=== PATIENT | male | born 1950 | race Two or more races ===

== ENCOUNTER 2016-11-08 12:28 | Emergency (ER) | payer OTHER ==
[2016-11-08 12:32] VITALS: TEMP 98; BMI 42.0
[2016-11-08 13:31] LABS: BASOPHIL 0.8 % (0-2.0); EOSINOPHIL 2.5 % (0-4.5); MCH 28.1 pg (25.7-33.7); MEAN CELL VOLUME 85.3 fl (80-96); MEAN PLT VOLUME 9.9 fl (7.5-11.1); NEUTROPHILS 69.4 % (42.8-82.8); PLATELET COUNT 70 K/MM3 (134-434); WHITE BLOOD COUNT 6.4 K/mm3 (4.0-10.0)
[2016-11-08] MEDS ORDERED: SODIUM CHLORIDE 1,000 ML IV STA ×2 (13:38→14:52)
--- NOTE | 2016-11-08 13:38 | PDOC ---
History of Present Illness - History of Present Illness Initial Comments: 11/08/16 13:58 The patient is a year old female, with a significant past medical history of hypertension and diabetes, who presents to the emergency department with polyuria, polydypsia, and blurred vision today. The patient reports having a dental procedure for left upper molar 4 days ago. He reports facial swelling initially which has since resolved. He states he took lantis (65 units) this morning and does not know why his sugars have been high. He denies chest pain, shortness of breath, headache and dizziness. He denies fever, chills, nausea, vomit, diarrhea and constipation. He denies dysuria, frequency, urgency and hematuria. Allergies: cefazolin, lactose <Reny Bales - Last Filed: 11/08/16 15:13> <Irene Montiel - Last Filed: 11/08/16 17:49> - General Chief Complaint: Blood Sugar Problem Stated Complaint: HIGH SUGAR, BLURRY VISION Past History <Reny Bales - Last Filed: 11/08/16 15:13> - Past Medical History Anemia: Yes ("low platelets") Asthma: Yes Cancer: No Cardiac Disorders: Yes (a.fib, CHF, CAD) COPD: Yes CHF: Yes Diabetes: Yes (W/ NEUROPATHY.) HTN: Yes Hypercholesterolemia: No Kidney Stones: Yes (LITHOTRIPSY) Liver Disease: Yes (HEP C, CIRRHOSIS R/T HCV) Psychiatric Problems: Yes (ANXIETY.) Suicide Attempt (Hx): No Thyroid Disease: Yes (hypothyroidism) - Surgical History Abdominal Surgery: Yes (repair ruptured diaphragm >40 yrs) Cardiac Surgery: Yes (STENT X 2, DEFIBRILLATOR) - Family Disease History Family Disease History: Diabetes: Father - Immunization History Td Vaccination: No TDAP Vaccination: No Immunization Up to Date: Yes - Psycho/Social/Smoking Cessation Hx Anxiety: Yes Suicidal Ideation: No Smoking Status: No Smoking History: Former smoker Have you smoked in the past 12 months: No Number of Cigarettes Smoked Daily: 0 If you are a former smoker, when did you quit?: 20 YRS Information on smoking cessation initiated: No Hx Alcohol Use: No Drug/Substance Use Hx: No Substance Use Type: None Hx Substance Use Treatment: No <Irene Montiel - Last Filed: 11/08/16 17:49> - Past Medical History Allergies/Adverse Reactions: Allergies Allergy/AdvReac Type Severity Reaction Status Date / Time cefazolin Allergy Severe Difficulty Verified 11/08/16 12:32 Breathing lactose Allergy Mild Verified 11/08/16 12:32 strawberry preserve Allergy Hives Uncoded 11/08/16 12:32 Home Medications: Ambulatory Orders Budesonide/Formeterol Fumarate [SYMBICORT 160/4.5mcg -] 2 inh PO ASDIR PRN 10/02 Amlodipine Besylate [Norvasc -] 5 mg PO DAILY #30 tablet 10/25/15 Aspirin [ASA -] 81 mg PO DAILY #30 tab.chew 10/25/15 Albuterol Sulfate Inhaler - [Ventolin Hfa Inhaler -] 2 inh PO QID 04/24/16 Vitamin D3 - 50,000 units PO ASDIR 04/24/16 Furosemide [Lasix -] 40 mg PO Q2D 11/08/16 Furosemide [Lasix] 80 mg PO Q2D 11/08/16 Gabapentin 100 mg PO TID 11/08/16 Insulin (Levemir) [Levemir Flexpen -] 40 units SQ HS 11/08/16 Insulin (Levemir) [Levemir Vial] 65 unit SQ AM 11/08/16 Insulin Aspart [Novolog] 0 unit SQ ACHS 11/08/16 Ipratropium [place] [Atrovent Hfa] 2 puff IH QID 11/08/16 Metoprolol Succinate [Toprol Xl -] 150 mg PO DAILY 11/08/16 Ramipril [Altace] 10 mg PO DAILY 11/08/16 Risperidone 1 mg PO DAILY 11/08/16 Simvastatin [Zocor -] 20 mg PO DAILY 11/08/16 Spironolactone [Aldactone] 25 mg PO DAILY 11/08/16 Review of Systems - Review of Systems Able to Perform ROS?: Yes Comments:: 11/08/16 14:14 GENERAL/CONSTITUTIONAL: No fever or chills. No weakness. HEAD, EYES, EARS, NOSE AND THROAT: (+) blurred vision. No ear pain or discharge. No sore throat. CARDIOVASCULAR: No chest pain or shortness of breath. RESPIRATORY: No cough, wheezing, or hemoptysis. GASTROINTESTINAL: No nausea, vomiting, diarrhea or constipation. GENITOURINARY: No dysuria, frequency, or change in urination. MUSCULOSKELETAL: No joint or muscle swelling or pain. No neck or back pain. SKIN: No rash NEUROLOGIC: No headache, vertigo, loss of consciousness, or change in strength/ sensation. ENDOCRINE: (+) high blood sugar. No increased thirst. No abnormal weight change. HEMATOLOGIC/LYMPHATIC: No anemia, easy bleeding, or history of blood clots. ALLERGIC/IMMUNOLOGIC: No hives or skin allergy. <Reny Bales - Last Filed: 11/08/16 15:13> *Physical Exam - Vital Signs Last Vital Signs Temp Pulse Resp BP Pulse Ox 98.0 F 55 L 20 135/86 97 11/08/16 12:29 11/08/16 12:11/08/16 12:11/08/16 12:11/08/16 12:29 - Physical Exam Comments: 11/08/16 14:14 GENERAL: Awake, alert, and fully oriented, in no acute distress HEAD: No signs of trauma EYES: PERRLA, EOMI, sclera anicteric, conjunctiva clear ENT: Auricles normal inspection, hearing grossly normal, nares patent, oropharynx clear without exudates. Moist mucosa NECK: Normal ROM, supple, no lymphadenopathy, JVD, or masses LUNGS: Breath sounds equal, clear to auscultation bilaterally. No wheezes, and no crackles HEART: Regular rate and rhythm, normal S1 and S2, no murmurs, rubs or gallops ABDOMEN: Soft, nontender, normoactive bowel sounds. No guarding, no rebound. No masses EXTREMITIES: Normal range of motion, no edema. No clubbing or cyanosis. No cords, erythema, or tenderness NEUROLOGICAL: Normal speech, normal gait SKIN: Warm, Dry, normal turgor, no rashes or lesions noted. <Reny Bales - Last Filed: 11/08/16 15:13> - Vital Signs Last Vital Signs Temp Pulse Resp BP Pulse Ox 98.0 F 55 L 20 135/86 97 11/08/16 12:29 11/08/16 12:29 11/08/16 12:29 11/08/16 12:29 11/08/16 12:29 <Irene Montiel - Last Filed: 11/08/16 17:49> Heart Score/ECG Review #1 General ECG Interpretation: Normal Rate (atrial fibrillation), Normal Intervals , No acute ischemic changes Compared to previous ECG there are: Other (TWI I, AVL) <Irene Montiel - Last Filed: 11/08/16 17:49> ED Treatment Course - LABORATORY CBC & Chemistry Diagram: 11/08/16 13:21 11/08/16 13:21 - ADDITIONAL ORDERS Additional order review: Laboratory Results 11/08/16 13:31 VBG pH 7.36 POC VBG pCO2 46.9 POC VBG pO2 33.3 Mixed VBG HCO3 25.5 H 11/08/16 13:21 RBC 5.04 MCV 85.3 MCHC 33.0 RDW 15.0 MPV 9.9 D Neutrophils % 69.4 Lymphocytes % 18.3 Monocytes % 9.0 Eosinophils % 2.5 Basophils % 0.8 - RADIOLOGY Radiograph Interpretation: 11/08/16 15:11 CXR was read by Dr. Kapoor at 14:37 Impression: There is a large heart, pacemaker, prominent debra and elevated right hemidiaphragm with mamillation. An acute chest process is not sen. The angles are sharp. <Reny Bales - Last Filed: 11/08/16 15:13> - LABORATORY CBC & Chemistry Diagram: 11/08/16 13:21 11/08/16 13:21 <Irene Montiel - Last Filed: 11/08/16 17:49> Medical Decision Making - Medical Decision Making 11/08/16 15:03 Dr. Aquino was called at the office at this time and the patient's case was discussed. He agrees to the patient admission and requests the patient be admitted to hospitalist service. <Reny Bales - Last Filed: 11/08/16 15:13> - Medical Decision Making 11/08/16 13:35 66 yo male with ho HTN DM recent dental procedure on left upper molar here today c/o polyuria, polydyspia and blurry vision. glucose was reading high at home. pt take lantus 65 units q am, took today and yesterday. also took 10 units novalog. did not come down. no f/c . facial swelling following procedure has improved. has left leg wound which was recently looked at and wrapped. no f/ c. no dysuria. no cough, no chest pain. on exam awake, alert, dry mucous membranes. lungs CTAB heart RRR no mr/g. abd soft nontender.left leg anterior foot wound, WWP. mild erythema. differential: dehydration, hyperosmolar hyperglycemia, dka, infection such as pna, uti or celulitis. plan ekg labs acetone iv hydration insulin. pt will require admission. 11/08/16 14:02 d/w with pt , Mrs Munoz who states she gives all of hismeds, but not his insulin injections because he wont allow her to, and she believes he is not taking medication as he should. just saw Dr. michael for his left leg wound, and boo boot placed 5 days ago. no signs of infection. 11/08/16 15:05 d/w dr. aquino, pt has h'o noncompliance. also has h/o hep C, liver cirrhosis. h/ o noncompliance. INR 1.3 at baseline. 11/08/16 17:48 tp seen by case management. has coordinated for pt to get home visiting nurse to help with diabetes education and medication administration. will eventually work on placement from the community. repeat sugar in 200's. pt notified. will fiber picker pt at 7 pm <Irene Montiel - Last Filed: 11/08/16 17:49> *DC/Admit/Observation/Transfer - Attestations Scribe Attestion: 11/08/16 14:15 Documentation prepared by Reny Bales, acting as medical manager for Irene Montiel MD <Reny Bales - Last Filed: 11/08/16 15:13> - Discharge Dispostion Admit: No <Irene Montiel - Last Filed: 11/08/16 17:49> Diagnosis at time of Disposition: Hyperglycemia without ketosis - Discharge Dispostion Disposition: HOME - Referrals Referrals: Abhijit Aquino MD [Primary Care Provider] - - Patient Instructions Additional Instructions: follow up with Dr Aquino this week. you will be contacted by a home visiting nurse tomorrow. return for any concerns. continue taking your insulin lantus in the morning and novolog with meals. return for any problems or concerns.
[2016-11-08 13:39] LABS: VENOUS PH 7.36 (7.32-7.42)
[2016-11-08 13:40] LABS: VENOUS BLOOD GAS HCO3 25.5 meq/L (19-25)
[2016-11-08 14:03] LABS: ACETONE SERUM NEGATIVE (NEGATIVE)
[2016-11-08 14:13] LABS: ALBUMIN 2.7 g/dl (3.4-5.0); ANION GAP 9 (8-16); BILIRUBIN,TOTAL 0.8 mg/dL (0.2-1.0); CALCIUM 8.2 mg/dL (8.5-10.1); CO2 28 mmol/L (21-32); COCKROFT - GAULT 86.18; CREATININE 1.5 mg/dL (0.7-1.3); SGPT/ALT 65 U/L (12-78); TOT PROT 6.6 g/dl (6.4-8.2)
[2016-11-08 14:14] LABS: ALK PHOS 69 U/L (45-117)
[2016-11-08 14:33] LABS: GLUCOSE,RANDOM 477 mg/dL (74-106); SGOT/AST 63 U/L (15-37)
[2016-11-08] MEDS ORDERED: INSULIN REGULAR HUMAN 100 UNITS/ML *VIAL IVPUSH ONE ×2 (14:53→17:09)
[2016-11-08 19:08] VITALS: BP 135/74; PULSE 91
--- NOTE | 2016-11-09 13:08 | EKG ---
Test Reason : Blood Pressure : / mmHG Vent. Rate : 077 BPM Atrial Rate : 081 BPM P-R Int : 000 ms QRS Dur : 120 ms QT Int : 412 ms P-R-T Axes : 000 -44 137 degrees QTc Int : 466 ms ATRIAL FIBRILLATION LEFT AXIS DEVIATION ANTERIOR INFARCT , AGE UNDETERMINED ABNORMAL ECG WHEN COMPARED WITH ECG OF 21-OCT-2015 11:17, ATRIAL FIBRILLATION HAS REPLACED SINUS RHYTHM ANTERIOR INFARCT IS NOW PRESENT INVERTED T WAVES HAVE REPLACED NONSPECIFIC T WAVE ABNORMALITY IN LATERAL LEADS Confirmed by LEON WILEY MD ([id number]) on 11/09/2016 1:08:15 PM Referred By: Confirmed By:LEON WILEY MD
== END 2016-11-08 19:12 | disposition home or self-care (01) ==
LOC: JER 12:28
PROC: 3E0337Z Introduction of Electrolytic and Water Balance Substance into Peripheral Vein, Percutaneous Approach (ICD-10-PCS; principal; 2016-11-08)
PROC: 3E033VG Introduction of Insulin into Peripheral Vein, Percutaneous Approach (ICD-10-PCS; 2016-11-08)
DX: E11.65 Type 2 diabetes mellitus with hyperglycemia (principal); Z79.4 Long term (current) use of insulin; I25.10 Atherosclerotic heart disease of native coronary artery without angina pectoris; I11.0 Hypertensive heart disease with heart failure; I50.9 Heart failure, unspecified; Z95.5 Presence of coronary angioplasty implant and graft; Z87.891 Personal history of nicotine dependence; J45.909 Unspecified asthma, uncomplicated; J44.9 Chronic obstructive pulmonary disease, unspecified; I48.91 Unspecified atrial fibrillation; E11.42 Type 2 diabetes mellitus with diabetic polyneuropathy; B18.2 Chronic viral hepatitis C; E03.9 Hypothyroidism, unspecified; K74.69 Other cirrhosis of liver
CPT/HCPCS: 36415; 71020-TC; 80053; 82009; 82803; 85025; 93005; 93010; 93970-TC; 99283-25

== ENCOUNTER 2017-02-14 15:08 | Emergency (ER) | payer OTHER ==
[2017-02-14 15:34] VITALS: BMI 39.1
--- NOTE | 2017-02-14 19:37 | PDOC ---
History of Present Illness - General History Source: Patient Exam Limitations: No Limitations - History of Present Illness Initial Comments: 02/14/17 19:56 The patient is a 66 year old male with significant past medical history of anemia, hypertension, atrial fibrillation, chronic venous insufficiency, diabetes mellitus, diabetic neuropathy, hypothyroidism, cirrhosis, hepatitis C, lithotripsy, CHF, CAD s/p stents x2, COPD, asthma, and anxiety who presents to the ED for elevated and uncontrolled blood sugar levels. Patient admits to not being compliant with his insulin. States he has been checking his blood sugar every day and noted his blood sugar has been increasing in the past several days. He decided to come into today after he noted his blood sugar was around 500 today. Patient admits to polyuria, but denies polydipsia. Denies abdominal pain, nausea, vomiting, or diarrhea. Denies dysuria or hematuria. States he has not seen his medical doctor for quite some time. The patient denies fever, chills, diaphoresis, cough, SOB, chest pain, and palpitations. Allergies: cefazolin (anaphylaxis) Social History: Former smoker (quit several years ago). No alcohol or drug use reported. Past Surgical History: stent placement x2, ruptured diaphragm repair >40 years PCP: Dr. Frank (Affiliated at [facility]) <Coretta Gastelum - Last Filed: 02/14/17 19:56> - General History Source: Patient <Luis Damon - Last Filed: 02/14/17 22:25> - General Chief Complaint: Blood Pressure Problem Stated Complaint: HIGH BLOOD SUGAR Time Seen by Provider: 02/14/17 19:32 Past History <Coretta Gastelum - Last Filed: 02/14/17 19:56> - Past Medical History Anemia: Yes ("low platelets") Asthma: Yes Cancer: No Cardiac Disorders: Yes (a.fib, CHF, CAD) COPD: Yes CHF: Yes Diabetes: Yes (W/ NEUROPATHY.) HTN: Yes Hypercholesterolemia: No Kidney Stones: Yes (LITHOTRIPSY) Liver Disease: Yes (HEP C, CIRRHOSIS R/T HCV) Psychiatric Problems: Yes (ANXIETY.) Suicide Attempt (Hx): No Thyroid Disease: Yes (hypothyroidism) - Surgical History Abdominal Surgery: Yes (repair ruptured diaphragm >40 yrs) Cardiac Surgery: Yes (STENT X 2, DEFIBRILLATOR) - Family Disease History Family Disease History: Diabetes: Father - Immunization History Td Vaccination: No TDAP Vaccination: No Immunization Up to Date: Yes - Psycho/Social/Smoking Cessation Hx Anxiety: Yes Suicidal Ideation: No Smoking Status: No Smoking History: Former smoker Have you smoked in the past 12 months: No Number of Cigarettes Smoked Daily: 0 If you are a former smoker, when did you quit?: 20 YRS Information on smoking cessation initiated: No Hx Alcohol Use: No Drug/Substance Use Hx: No Substance Use Type: None Hx Substance Use Treatment: No <Luis Damon - Last Filed: 02/14/17 22:25> - Past Medical History Allergies/Adverse Reactions: Allergies Allergy/AdvReac Type Severity Reaction Status Date / Time cefazolin Allergy Severe Difficulty Verified 02/14/17 15:32 Breathing lactose Allergy Mild Verified 02/14/17 15:32 strawberry preserve Allergy Hives Uncoded 02/14/17 15:32 Home Medications: Ambulatory Orders Unobtainable [Unobtainable] 02/14/17 Review of Systems - Review of Systems Able to Perform ROS?: Yes Comments:: 02/14/17 19:57 CONSTITUTIONAL: Absent: fever, chills, diaphoresis, generalized weakness, malaise, loss of appetite HEENT: Absent: rhinorrhea, nasal congestion, throat pain, throat swelling, difficulty swallowing, mouth swelling, ear pain, eye pain, visual Changes CARDIOVASCULAR: Absent: chest pain, syncope, palpitations, irregular heart rate, lightheadedness , peripheral edema RESPIRATORY: Absent: cough, shortness of breath, dyspnea with exertion, orthopnea, wheezing, stridor, hemoptysis GASTROINTESTINAL: Absent: abdominal pain, abdominal distension, nausea, vomiting, diarrhea, constipation, melena, hematochezia GENITOURINARY: Absent: dysuria, hesitancy, hematuria, flank pain, genital pain MUSCULOSKELETAL: Absent: myalgia, arthralgia, joint swelling SKIN: Absent: rash, itching, pallor ENDOCRINE: +polyuria, elevated blood sugar levels Absent: unexplained weight gain, unexplained weight loss, heat intolerance, cold intolerance, polydipsia NEUROLOGIC: Absent: headache, focal weakness or paresthesias, dizziness, unsteady gait, seizure, mental status changes, bladder or bowel incontinence <Coretta Gastelum - Last Filed: 02/14/17 19:56> *Physical Exam - Vital Signs Last Vital Signs Temp Pulse Resp BP Pulse Ox 98 F 76 20 142/84 96 02/14/17 15:33 02/14/17 15:33 02/14/17 15:33 02/14/17 15:33 02/14/17 15:33 - Physical Exam Comments: 02/14/17 19:57 GENERAL: Well developed, well nourished. Awake and alert. No acute distress. HEENT: Normocephalic, atraumatic. PERRLA, EOMI. No conjunctival pallor. Sclera are non- icteric. Moist mucous membranes. Oropharynx is clear. NECK: Supple. Full ROM. No JVD. Carotid pulses 2+ and symmetric, without bruits. No thyromegaly. No lymphadenopathy. CARDIOVASCULAR: Regular rate and rhythm. No murmurs, rubs, or gallops. Distal pulses are 2+ and symmetric. PULMONARY: No evidence of respiratory distress. Lungs clear to auscultation bilaterally. No wheezing, rales or rhonchi. ABDOMINAL: Soft. Non-tender. Non-distended. No rebound or guarding. No organomegaly. Normoactive bowel sounds. MUSCULOSKELETAL Normal range of motion at all joints. No bony deformities or tenderness. No CVA tenderness. EXTREMITIES: No cyanosis. No clubbing. No edema. No calf tenderness. SKIN: Warm and dry. Normal capillary refill. No rashes. No jaundice. NEUROLOGICAL: Alert, awake, appropriate. Cranial nerves 2-12 intact. No gross neurological deficits. <Coretta Gastelum - Last Filed: 02/14/17 19:56> - Vital Signs Last Vital Signs Temp Pulse Resp BP Pulse Ox 98 F 76 20 142/84 96 02/14/17 15:33 02/14/17 15:33 02/14/17 15:33 02/14/17 15:33 02/14/17 15:33 <Luis Damon - Last Filed: 02/14/17 22:25> ED Treatment Course - ADDITIONAL ORDERS Additional order review: Laboratory Results 02/14/17 17:52 POC Glucometer [id number] 02/14/17 17:52 POC Glucometer [id number] <Coretta Gastelum - Last Filed: 02/14/17 19:56> - LABORATORY CBC & Chemistry Diagram: 02/14/17 21:15 02/14/17 21:15 - ADDITIONAL ORDERS Additional order review: Laboratory Results 02/14/17 17:52 POC Glucometer [id number] 02/14/17 17:52 POC Glucometer [id number] <Luis Damon - Last Filed: 02/14/17 22:25> Medical Decision Making - Medical Decision Making 02/14/17 22:25 Dr. Damon: The scribe's documentation has been prepared under my direction and personally reviewed by me in its entirery. I confirm that the note above accurately reflects all work, treatment, procedures, and medical decision making performed by me. <Luis Damon - Last Filed: 02/14/17 22:25> *DC/Admit/Observation/Transfer - Attestations Scribe Attestion: 02/14/17 19:57 Documentation prepared by Coretta Gastelum, acting as faculty i on call medical assistant for Luis Damon DO. <Coretta Gastelum - Last Filed: 02/14/17 19:56> - Discharge Dispostion Admit: No <Luis Damon - Last Filed: 02/14/17 22:25> Diagnosis at time of Disposition: Diabetes mellitus Qualifiers: Diabetes mellitus type: type 1 Diabetes mellitus complication status: without complication Qualified Code(s): E10.9 - Type 1 diabetes mellitus without complications - Discharge Dispostion Disposition: HOME Condition at time of disposition: Stable - Referrals Referrals: Jolene Lin MD [Staff Physician] - - Patient Instructions Printed Discharge Instructions: DI for Diabetes Type 1 -- Adult Additional Instructions: take your insulin as you should. Follow up with your doctor or the doctor provided. Return if any problems,
[2017-02-14] MEDS ORDERED: SODIUM CHLORIDE 1,000 ML IV STA (19:38)
[2017-02-14 21:29] LABS: BASOPHIL 0.6 % (0-2.0); EOSINOPHIL 3.2 % (0-4.5); MCH 28.7 pg (25.7-33.7); MCHC 33.6 g/dl (32.0-35.9); MEAN CELL VOLUME 85.3 fl (80-96); MEAN PLT VOLUME 10.4 fl (7.5-11.1); NEUTROPHILS 63.7 % (42.8-82.8); PLATELET COUNT 63 K/MM3 (134-434); RDW 13.8 % (11.9-15.9); WHITE BLOOD COUNT 4.6 K/mm3 (4.0-10.0)
[2017-02-14 21:34] LABS: URINE APPEARANCE CLEAR; URINE BILIRUBIN NEGATIVE (NEGATIVE); URINE BLOOD NEGATIVE (NEGATIVE); URINE COLOR YELLOW; URINE GLUCOSE (UA) 3+ (NEGATIVE); URINE KETONE NEGATIVE (NEGATIVE); URINE LEUK ESTERASE NEGATIVE (NEGATIVE); URINE NITRITE NEGATIVE (NEGATIVE); URINE PROTEIN NEGATIVE (NEGATIVE); URINE UROBILINOGEN NEGATIVE mg/dL (0.2-1.0)
[2017-02-14 21:42] LABS: VENOUS PH 7.31 (7.32-7.42)
[2017-02-14 21:43] LABS: VENOUS BLOOD GAS HCO3 29.1 meq/L (19-25)
[2017-02-14 21:59] LABS: ALBUMIN 2.8 g/dl (3.4-5.0); AMYLASE 32 U/L (25-115); ANION GAP 6 (8-16); BILIRUBIN,TOTAL 0.9 mg/dL (0.2-1.0); CALCIUM 8.4 mg/dL (8.5-10.1); CO2 29 mmol/L (21-32); CREATININE 1.1 mg/dL (0.7-1.3); GLUCOSE,RANDOM 261 mg/dL (74-106); MAGNESIUM 1.7 mg/dL (1.8-2.4); SGOT/AST 22 U/L (15-37); SGPT/ALT 25 U/L (12-78); TOT PROT 6.4 g/dl (6.4-8.2)
[2017-02-14 22:00] LABS: ALK PHOS 54 U/L (45-117)
[2017-02-14 22:44] VITALS: BP 145/82; PULSE 79; TEMP 98
--- NOTE | 2017-02-21 14:54 | EKG ---
Test Reason : Blood Pressure : / mmHG Vent. Rate : 072 BPM Atrial Rate : 111 BPM P-R Int : 000 ms QRS Dur : 118 ms QT Int : 432 ms P-R-T Axes : 000 -50 212 degrees QTc Int : 473 ms ATRIAL FIBRILLATION WITH A COMPETING JUNCTIONAL PACEMAKER LEFT ANTERIOR FASCICULAR BLOCK LEFT VENTRICULAR HYPERTROPHY WITH QRS WIDENING ANTEROSEPTAL INFARCT (CITED ON OR BEFORE 07-JUN-2014) ABNORMAL ECG WHEN COMPARED WITH ECG OF 08-NOV-2016 13:56, QUESTIONABLE CHANGE IN INITIAL FORCES OF SEPTAL LEADS T WAVE INVERSION NOW EVIDENT IN INFERIOR LEADS T WAVE INVERSION MORE EVIDENT IN LATERAL LEADS Confirmed by RAQUEL FREEMAN, VALERIA ([id number]) on 02/21/2017 2:54:25 PM Referred By: Confirmed By:VALERIA GARCÍA MD
== END 2017-02-14 22:45 | disposition home or self-care (01) ==
LOC: JER 15:08
PROC: 3E0337Z Introduction of Electrolytic and Water Balance Substance into Peripheral Vein, Percutaneous Approach (ICD-10-PCS; principal; 2017-02-14)
DX: E10.65 Type 1 diabetes mellitus with hyperglycemia (principal); E10.42 Type 1 diabetes mellitus with diabetic polyneuropathy; Z79.4 Long term (current) use of insulin; Z91.14 Patient's other noncompliance with medication regimen; I25.10 Atherosclerotic heart disease of native coronary artery without angina pectoris; I10 Essential (primary) hypertension; Z95.5 Presence of coronary angioplasty implant and graft; I48.91 Unspecified atrial fibrillation; Z95.810 Presence of automatic (implantable) cardiac defibrillator; I87.2 Venous insufficiency (chronic) (peripheral); J44.9 Chronic obstructive pulmonary disease, unspecified; J45.909 Unspecified asthma, uncomplicated; E03.9 Hypothyroidism, unspecified; B19.20 Unspecified viral hepatitis C without hepatic coma; K74.60 Unspecified cirrhosis of liver; Z87.442 Personal history of urinary calculi
CPT/HCPCS: 36415; 80053; 81003; 82150; 82803; 83735; 85025; 93005; 93010; 96360; 99283-25

== ENCOUNTER 2017-09-06 18:40 | Observation (INO) | payer OTHER ==
[2017-09-06 19:33] LABS: BASO % 0.4 % (0-2.0); EOS % 1.2 % (0-4.5); HEMATOCRIT 43.6 % (35.4-49); HEMOGLOBIN 14.8 GM/dL (11.7-16.9); LYMPH % 15.7 % (8-40); MCH 28.7 pg (25.7-33.7); MEAN CELL VOLUME 84.3 fl (80-96); MEAN PLT VOLUME 10.1 fl (7.5-11.1); MONO % 8.3 % (3.8-10.2); NEUT % 74.4 % (42.8-82.8); PLATELET COUNT 69 K/MM3 (134-434); RBC 5.18 M/mm3 (4.00-5.60); RDW 13.8 % (11.9-15.9); WHITE BLOOD COUNT 5.1 K/mm3 (4.0-10.0)
--- NOTE | 2017-09-06 19:52 | PDOC ---
History of Present Illness - General History Source: Patient, Family, Old Records Exam Limitations: No Limitations - History of Present Illness Initial Comments: 09/06/17 20:16 Patient is a 66 year old male with a significant past medical history of HTN, AFIB, CHF, CAD COPD, HEP C, CIRRHOSIS R/T HCV, Hypothyroidism, and Diabetes, who presents to the ED with complaints of high blood sugar that began earlier today. Patient reports not being compliant with diabetic medication stating it is because he is being lazy. He reports going to see his PCP at [facility] but states his blood sugar was not checked. Patient states not checking his blood sugar today as he does not currently feel like checking it. He reports not eating in 1 week due to increased decrease in appetite. As per patient's , the patient has been experiencing urinary frequency, blurred vision, and feeling faint recently, prompting her to bring the patient into the ED for further evaluation. She reports the patient has been experiencing intermittent episodes of confusion but states he has been diagnosed with early onset of alzheimer's. Denies chest pain, Sob. Denies nausea, vomiting. Denies fevers,chills. Denies contact with sick individuals, out of state travelling. Denies headache. Denies dysuria, hematuria, constipation, diarrhea. Denies any other symptoms. Allergies: cefazolin, lactose Social history Surgical history: STENT X 2, DEFIBRILLATOR, repair ruptured diaphragm >40 yrs. PMD: Not on staff <Supa Fletcher - Last Filed: 09/07/17 01:22> - General History Source: Patient <Luis Damon - Last Filed: 09/11/17 19:06> - General Chief Complaint: Blood Sugar Problem Stated Complaint: BLOOD SUGAR PROBLEM Time Seen by Provider: 09/06/17 19:51 Past History <Supa Fletcher - Last Filed: 09/07/17 01:22> - Past Medical History Anemia: Yes ("low platelets") Asthma: Yes Cancer: No Cardiac Disorders: Yes (a.fib, CHF, CAD) COPD: Yes CHF: Yes Diabetes: Yes (W/ NEUROPATHY.) HTN: Yes Hypercholesterolemia: No Kidney Stones: Yes (LITHOTRIPSY) Liver Disease: Yes (HEP C, CIRRHOSIS R/T HCV) Psychiatric Problems: Yes (ANXIETY.) Thyroid Disease: Yes (hypothyroidism) - Surgical History Abdominal Surgery: Yes (repair ruptured diaphragm >40 yrs) Cardiac Surgery: Yes (STENT X 2, DEFIBRILLATOR) - Family Disease History Family Disease History: Diabetes: Father - Immunization History Td Vaccination: No TDAP Vaccination: No Immunization Up to Date: Yes - Suicide/Smoking/Psychosocial Hx Smoking Status: No Smoking History: Never smoked Have you smoked in the past 12 months: No Number of Cigarettes Smoked Daily: 0 If you are a former smoker, when did you quit?: 20 YRS Information on smoking cessation initiated: No Hx Alcohol Use: No Drug/Substance Use Hx: No Substance Use Type: None Hx Substance Use Treatment: No <Luis Damon - Last Filed: 09/11/17 19:06> - Past Medical History Allergies/Adverse Reactions: Allergies Allergy/AdvReac Type Severity Reaction Status Date / Time cefazolin Allergy Severe Difficulty Verified 02/14/17 15:32 Breathing lactose Allergy Mild Verified 02/14/17 15:32 strawberry preserve Allergy Hives Uncoded 02/14/17 15:32 Home Medications: Ambulatory Orders Albuterol Sulfate Inhaler - [Ventolin HFA Inhaler -] 2 inh PO Q4H PRN 09/06/17 Amlodipine Besylate [Norvasc -] 2.5 mg PO DAILY 09/06/17 Aspirin [Aspirin EC] 81 mg PO DAILY 09/06/17 Budesonide/Formeterol Fumarate [SYMBICORT 160/4.5mcg -] 1 inh PO BID PRN Furosemide [Lasix -] 40 mg PO DAILY 09/06/17 Gabapentin 100 mg PO TID 09/06/17 Insulin (Levemir) [Levemir Vial] 70 unit SQ AM 09/06/17 Insulin Lispro [Humalog] 0 unit SQ ACHS PRN 09/06/17 Levothyroxine Sodium [Unithroid] 137 mcg PO DAILY 09/06/17 Linagliptin [Tradjenta] 5 mg PO DAILY 09/06/17 Metoprolol Succinate [Toprol Xl] 150 mg PO DAILY 09/06/17 Omeprazole 20 mg PO DAILY 09/06/17 Ramipril 10 mg PO DAILY 09/06/17 Sertraline HCl [Zoloft] 50 mg PO DAILY 09/06/17 Simvastatin 20 mg PO DAILY 09/06/17 Spironolactone 25 mg PO DAILY 09/06/17 Review of Systems - Review of Systems Able to Perform ROS?: Yes Comments:: 09/06/17 20:16 CONSTITUTIONAL: +Weakness. Absent: fever, no chills, no fatigue EYES: +blurred vision. Absent: ENT: Absent: ear pain, no sore throat CARDIOVASCULAR: Absent: chest pain, no palpitations RESPIRATORY: Absent: cough, no SOB GI: +Decreased appetite. Absent: abdominal pain, no nausea, no vomiting, no constipation, no diarrhea GENITOURINARY: +urinary frequency Absent: dysuria, no hematuria MUSCULOSKELETAL: Absent: back pain, no arthralgia, no myalgia SKIN: Absent: rash <Supa Fletcher - Last Filed: 09/07/17 01:22> *Physical Exam - Vital Signs Last Vital Signs Temp Pulse Resp BP Pulse Ox 97.0 F L 100 H 18 140/75 99 09/06/17 18:50 09/06/17 18:50 09/06/17 18:50 09/06/17 18:50 09/06/17 18:50 - Physical Exam Comments: 09/06/17 20:18 GENERAL: Well-appearing, well-nourished. No apparent distress. HEENT: Normocephalic, atraumatic. PERRL, EOM intact. CARDIOVASCULAR: Normal S1, S2. Regular rate and rhythm. PULMONARY: +Diminished breath sounds. Clear to auscultation bilaterally. ABDOMEN: Soft, non-distended, non-tender. EXTREMITIES: +Palpable distal pulses, 1+ on left leg, 2+ on right leg. Normal ROM in all four extremities. No gross deformities. SKIN: Warm, dry. No rash NEUROLOGICAL: No focal neurological deficits. <Supa Fletcher - Last Filed: 09/07/17 01:22> - Vital Signs Last Vital Signs Temp Pulse Resp BP Pulse Ox 97.0 F L 100 H 18 140/75 99 09/06/17 18:50 09/06/17 18:50 09/06/17 18:50 09/06/17 18:50 09/06/17 18:50 <Luis Damon - Last Filed: 09/11/17 19:06> Heart Score/ECG Review - ECG Intrepretation Comment:: 03/23/18 01:22 Completed @1:18:20 Atrial flutter with variable AV block with premature ventricular or aberrantly conducted complexes Left axis deviation Anteroseptal infarct, age undetermined ST & T wave abnormality, consdier lateral ischemia Abnormal ECG Vent. rate 89 bpm MA interval * ms QRS duration 116 ms <Supa Fletcher - Last Filed: 09/07/17 01:22> ED Treatment Course - LABORATORY CBC & Chemistry Diagram: 09/06/17 19:15 09/06/17 19:16 - ADDITIONAL ORDERS Additional order review: 09/06/17 19:15 RBC 5.18 MCV 84.3 MCHC 34.0 RDW 13.8 MPV 10.1 Neutrophils % 74.4 Lymphocytes % 15.7 D Monocytes % 8.3 Eosinophils % 1.2 Basophils % 0.4 <Supa Fletcher - Last Filed: 09/07/17 01:22> - LABORATORY CBC & Chemistry Diagram: 09/08/17 07:00 09/08/17 07:00 - ADDITIONAL ORDERS Additional order review: 09/06/17 19:15 RBC 5.18 MCV 84.3 MCHC 34.0 RDW 13.8 MPV 10.1 Neutrophils % 74.4 Lymphocytes % 15.7 D Monocytes % 8.3 Eosinophils % 1.2 Basophils % 0.4 <Luis Damon - Last Filed: 09/11/17 19:06> Medical Decision Making - Medical Decision Making 09/11/17 19:06 Dr. Damon: The scribe's documentation has been prepared under my direction and personally reviewed by me in its entirery. I confirm that the note above accurately reflects all work, treatment, procedures, and medical decision making performed by me. <Luis Damon - Last Filed: 09/11/17 19:06> *DC/Admit/Observation/Transfer - Attestations Scribe Attestion: 09/06/17 20:19 Documentation prepared by Supa Fletcher, acting as medical record clerk for Luis Damon MD/DO. <Supa Fletcher - Last Filed: 09/07/17 01:22> - Discharge Dispostion Admit: Yes <Luis Damon - Last Filed: 09/11/17 19:06> Diagnosis at time of Disposition: Hyperglycemia - Discharge Dispostion Disposition: HOME Condition at time of disposition: Improved
[2017-09-06 20:46] LABS: ALBUMIN 3.4 g/dl (3.4-5.0); ANION GAP 13 (8-16); BILIRUBIN,TOTAL 1.4 mg/dL (0.2-1.0); BLOOD UREA NITROGEN 20 mg/dL (7-18); CALCIUM 8.5 mg/dL (8.5-10.1); CHLORIDE 93 mmol/L (98-107); CO2 27 mmol/L (21-32); CREATININE 1.2 mg/dL (0.7-1.3); POTASSIUM 4.1 mmol/L (3.5-5.1); SGOT/AST 15 U/L (15-37); SGPT/ALT 23 U/L (12-78); SODIUM 133 mmol/L (136-145)
[2017-09-06 20:47] LABS: ALK PHOS 56 U/L (45-117); TOT PROT 6.8 g/dl (6.4-8.2)
[2017-09-06 20:48] LABS: GLUCOSE,RANDOM 532 mg/dL (74-106)
[2017-09-06 21:01] LABS: INR 1.33 (0.82-1.09)
[2017-09-06 21:04] LABS: ACTIVATED PTT 32.4 SECONDS (26.9-34.4)
[2017-09-06 21:24] LABS: ACETONE SERUM POSITIVE SMALL 1+ (NEGATIVE)
[2017-09-06] MEDS ORDERED: INSULIN REGULAR HUMAN 100 UNITS/ML *VIAL ONE (21:37)
[2017-09-06] MEDS ORDERED: INSULIN REGULAR HUMAN 100 UNITS/ML *VIAL IVPUSH ONE (21:40)
[2017-09-06] MEDS ORDERED: SODIUM CHLORIDE 1,000 ML IV ONE (21:41)
[2017-09-06 22:55] LABS: URINE APPEARANCE CLEAR; URINE BILIRUBIN NEGATIVE (NEGATIVE); URINE BLOOD 1+ (NEGATIVE); URINE COLOR STRAW; URINE GLUCOSE (UA) 3+ (NEGATIVE); URINE KETONE TRACE (NEGATIVE); URINE LEUK ESTERASE NEGATIVE (NEGATIVE); URINE NITRITE NEGATIVE (NEGATIVE); URINE PROTEIN NEGATIVE (NEGATIVE)
[2017-09-07] MEDS ORDERED: BUDESONIDE/FORMETEROL FUMARATE 160/4.5 mcg INHALER IH PRN (02:38)
--- NOTE | 2017-09-07 02:46 | HP ---
CHIEF COMPLAINT: uncontrolled sugar PCP: HISTORY OF PRESENT ILLNESS: 66 y/o M with PMH HTN, atrial fibrillation, CHF, CAD s/p 2 stents, COPD, Hepatitis C, cirrhosis, HCV, hypothyroidism, DM, who presents to the ED c/o "uncontrolled sugar level." As per pt, when he was at home this evening, his checked his sugar and it was "extremely elevated." Pt is noncompliant with his medications and does not check his blood sugar routinely. He does "not care to check it" because he is afraid of needles. Approximately twenty years ago, pt had an insulin pump, but stopped using it because he was unable to monitor it adequately. Pt was supposed to see an glove turner and former for further maintenance , however never did. His is in charge of administering his medications. At this time, pt states his DM has been a/w increased urination; he has been "urinating all over the house" this week. He also endorses blurred vision and generalized malaise. Denies HOLLIS, fever, chills, SOB, chest pain, dysuria, or changes in bowel function. ER course was notable for: (1) BG 532 (2) insulin 10 units (3) IV NS- 2L Recent Travel: none PAST MEDICAL HISTORY: as above PAST SURGICAL HISTORY: stent x 2, defibrillator, repair of ruptured diaphragm 40 yrs ago Social History: was in the [employer] for 4 years Smoking: stopped 20 yrs ago, had smoked for 10 yrs during his teenage years - a few cigarettes/ day Alcohol: stopped 20 yrs ago, drank heavily "anything put in front of him" Drugs: used during his four years in the [employer] - cocaine, heroin, marijuana , "multiple unknown hallucinogens" Family History: non-contributory Allergies cefazolin Allergy (Severe, Verified 02/14/17 15:32) Difficulty Breathing lactose Allergy (Mild, Verified 02/14/17 15:32) strawberry preserve Allergy (Uncoded 02/14/17 15:32) Hives per pt HOME MEDICATIONS: Home Medications Medication Instructions Recorded Albuterol Sulfate Inhaler - 2 inh PO Q4H PRN 09/06/17 [Ventolin Hfa Inhaler -] Amlodipine Besylate [Norvasc -] 2.5 mg PO DAILY 09/06/17 Aspirin [Aspirin EC] 81 mg PO DAILY 09/06/17 Budesonide/Formeterol Fumarate 1 inh PO BID PRN 09/06/17 [SYMBICORT 160/4.5mcg -] Furosemide [Lasix -] 40 mg PO DAILY 09/06/17 Gabapentin 100 mg PO TID 09/06/17 Insulin (Levemir) [Levemir Vial] 70 unit SQ AM 09/06/17 Insulin Lispro [Humalog] 0 unit SQ ACHS PRN 09/06/17 Levothyroxine Sodium [Unithroid] 137 mcg PO DAILY 09/06/17 Linagliptin [Tradjenta] 5 mg PO DAILY 09/06/17 Metoprolol Succinate [Toprol Xl] 150 mg PO DAILY 09/06/17 Omeprazole 20 mg PO DAILY 09/06/17 Ramipril 10 mg PO DAILY 09/06/17 Sertraline HCl [Zoloft] 50 mg PO DAILY 09/06/17 Simvastatin 20 mg PO DAILY 09/06/17 Spironolactone 25 mg PO DAILY 09/06/17 REVIEW OF SYSTEMS CONSTITUTIONAL: Absent: fever, chills, diaphoresis, generalized weakness, malaise, loss of appetite, weight change HEENT: Absent: rhinorrhea, nasal congestion, throat pain, throat swelling, difficulty swallowing, mouth swelling, ear pain, eye pain, visual changes CARDIOVASCULAR: Absent: chest pain, syncope, palpitations, irregular heart rate, lightheadedness , peripheral edema RESPIRATORY: Absent: cough, shortness of breath, dyspnea with exertion, orthopnea, wheezing, stridor, hemoptysis GASTROINTESTINAL: Absent: abdominal pain, abdominal distension, nausea, vomiting, diarrhea, constipation, melena, hematochezia GENITOURINARY: +urinary frequency, urgency Absent: dysuria, hesitancy, hematuria, flank pain, genital pain MUSCULOSKELETAL: Absent: myalgia, arthralgia, joint swelling, back pain, neck pain SKIN: Absent: rash, itching, pallor HEMATOLOGIC/IMMUNOLOGIC: Absent: easy bleeding, easy bruising, lymphadenopathy, frequent infections ENDOCRINE: Absent: unexplained weight gain, unexplained weight loss, heat intolerance, cold intolerance NEUROLOGIC: Absent: headache, focal weakness or paresthesias, dizziness, unsteady gait, seizure, mental status changes, bladder or bowel incontinence PSYCHIATRIC: Absent: anxiety, depression, suicidal or homicidal ideation, hallucinations. PHYSICAL EXAMINATION Vital Signs 03/22/18 18:50 Temperature 97.0 F L Pulse Rate 100 H Pulse Rate [ Apical] Respiratory 18 Rate Blood Pressure 140/75 Blood Pressure [Right Arm] O2 Sat by Pulse 99 Oximetry (%) GENERAL: Disheveled gentleman. Awake, alert, and fully oriented, in no acute distress. Sitting comfortably in chair, soiled clothing. HEAD: Normal with no signs of trauma. EYES: Pupils equal, round and reactive to light, extraocular movements intact, sclera anicteric, conjunctiva clear. EARS, NOSE, THROAT: Ears normal, nares patent, oropharynx clear without exudates. Moist mucous membranes. TEETH: +poor dentition NECK: Normal range of motion, supple LUNGS: Breath sounds equal, clear to auscultation bilaterally. No wheezes, and no crackles. No accessory muscle use. HEART: irregular rate and rhythm, normal S1 and S2 without murmur, rub or gallop. ABDOMEN: Soft, nontender, not distended, normoactive bowel sounds, no guarding, no rebound, no masses. LOWER EXTREMITIES: 2+ posterior tibial pulses, warm, well-perfused. No calf tenderness. No peripheral edema. NEUROLOGICAL: Cranial nerves II-XII intact. Laboratory Results 09/06/17 09/06/17 09/06/17 19:15 19:15 19:16 WBC 5.1 RBC 5.18 Hgb 14.8 Hct 43.6 MCV 84.3 MCH 28.7 MCHC 34.0 RDW 13.8 Plt Count 69 L MPV 10.1 Neutrophils % 74.4 Lymphocytes % 15.7 D Monocytes % 8.3 Eosinophils % 1.2 Basophils % 0.4 PT with INR 15.00 H INR 1.33 H PTT (Actin FS) 32.4 Sodium 133 L Potassium 4.1 Chloride 93 L Carbon Dioxide 27 Anion Gap 13 BUN 20 H Creatinine 1.2 Creat Clearance w eGFR > 60 POC Glucometer Random Glucose 532 H* D Calcium 8.5 Total Bilirubin 1.4 H D AST 15 D ALT 23 Alkaline Phosphatase 56 Ammonia Total Protein 6.8 Albumin 3.4 D Acetone, Qual Positive small 1+ 09/06/17 09/06/17 09/06/17 20:55 22:30 23:06 POC Glucometer [phone] Alkaline Phosphatase Ammonia 20.55 Total Protein Albumin Urine Color Straw Urine Appearance Clear Urine pH 6.0 Ur Specific [place] 1.014 Urine Protein Negative Urine Glucose (UA) 3+ H Urine Ketones Trace H Urine Blood 1+ H Urine Nitrite Negative Urine Bilirubin Negative Urine Urobilinogen 2.0 Ur Leukocyte Esterase Negative Urine WBC (Auto) <1 Urine RBC (Auto) 2 TESTING EKG: atrial flutter - variable heart block, PVC's, L axis deviation. anteroseptal infarct- age undetermined, ST and T abnormality. ASSESSMENT/PLAN: 66 y/o M with PMH HTN, atrial fibrillation, CHF, CAD, COPD, Hepatitis C, cirrhosis, HCV, hypothyroidism, DM, who presents to the ED c/o "uncontrolled sugar level." Pt admitted to med-surg for hyperglycemia 2/2 medication non- compliance. #Hyperglycemia 2/2 medication non-compliance -Pt without DKA- without AG, bicarb WNL, trace ketones on UA -Medication non-compliance -With BG 532, received 10U insulin, 2L IV NS - repeat BG in 300's -insulin coverage 0.5 -1 units/kg - will start on 15 units Levemir BID, 10 units novolog before meals, ISS -adjust as needed, see coverage tomorrow -gentle IVF- reassess for crackles -F/u A1c #HTN-uncontrolled -Continue norvasc 2.5mg PO qd -Toprol 150mg PO qd -Ramipril 10mg PO qd -Continue to assess - unclear pt's compliance concerning other meds #atrial fibrillation -rate control toprol 150mg PO qd -not on a/c as pt with thrombocytopenia #CHF with defibrillator -continue lasix 40mg PO qd -Spirinolactone 25mg PO qd -sodium controlled 2g -daily weights #CAD s/p two stents -continue aspirin 81mg PO qd -Simvastatin 20mg PO qd #COPD -continue ventolin q4h PRN -Symbicort 1 IH PO BID #Hypothyroidism -Continue levothyroxine 137 mcg PO qd #HLD -Simvastatin 20mg PO qd #Depression -Continue Zoloft 50mg PO qd #GERD -Continue protonix 40mg PO qd #F/E/N avoid excess fluids as pt with CHF. IV NS 75 cc/hr gentle - reassess for crackles Monitor electrolytes HTN/diabetic diet #PPX DVT: early ambulation, SCD's #Dispo Med-surg pt meds with need med-rec in AM when pharmacy open Visit type - Emergency Visit Emergency Visit: Yes ED Registration Date: 09/07/17 Care time: The patient presented to the Emergency Department on the above date and was hospitalized for further evaluation of their emergent condition. - New Patient This patient is new to me today: Yes Date on this admission: 09/07/17 - Critical Care Critical Care patient: No Hospitalist Screening - Colonoscopy Questionnaire Colonoscopy Questionnaire: Colonoscopy Questionnaire - Patient: 50 - 75 years old and never had a screening colonoscopy: Unknown History of colon or rectal polyps, or CA: Unknown History of IBD, Crohn's disease or UC: Unknown History of abdominal radiation therapy as a child: Unknown - Relative: 1 with colon or rectal CA, or polyps at age 60 or younger: Unknown Colon or rectal CA diagnosed at age 45 or younger: Unknown Multiple relatives with colon or rectal CA: Unknown - Outcome: Screening Result: Negative Screen
[2017-09-07 02:47] VITALS: BMI 36.8
--- NOTE | 2017-09-07 04:00 | PN ---
Teaching Attending Note Name of Resident: Kalee Small ATTENDING PHYSICIAN STATEMENT I saw and evaluated the patient. I reviewed the resident's note and discussed the case with the resident. I agree with the resident's findings and plan as documented. SUBJECTIVE: This is a 66 year old man with a history of HTN, hyperlipidemia, atrial fibrillation, chronic systolic heart failure, AICD, CAD, stents, COPD, FAM, hepatitis C, cirrhosis, hypothyroidism, IDDM, GERD, venous insufficiency who comes to the ED complaining of high sugars and urinary urgency and incontinence. He does not check his sugars because he does not want to. He says he uses insulin but does not know which type or how much. He does not know the name of his physician or which pharmacy he uses. He says he has had diabetes "forever" and that he has urinary urgency, frequency, and incontinence where he has been "urinating all over the house for a long time." OBJECTIVE: Vital Signs Period Temp Pulse Resp BP Sys/Guevara Pulse Ox Last 24 Hr 97.0 F-98.4 F 91-100 18- 140-181/60-90 97-99 HEART: Irregular LUNGS: Clear ABDOMEN: Obese, soft, non-tender, non-distended, normal BS EXTREMITIES: Trace edema, chronic venous stasis changes of both legs Laboratory Tests 09/06/17 09/06/17 09/06/17 19:15 19:15 19:16 WBC 5.1 RBC 5.18 Hgb 14.8 Hct 43.6 MCV 84.3 MCH 28.7 MCHC 34.0 RDW 13.8 Plt Count 69 L MPV 10.1 Neutrophils % 74.4 Lymphocytes % 15.7 D Monocytes % 8.3 Eosinophils % 1.2 Basophils % 0.4 PT with INR 15.00 H INR 1.33 H PTT (Actin FS) 32.4 Sodium 133 L Potassium 4.1 Chloride 93 L Carbon Dioxide 27 Anion Gap 13 BUN 20 H Creatinine 1.2 Creat Clearance w eGFR > 60 POC Glucometer Random Glucose 532 H* D Calcium 8.5 Total Bilirubin 1.4 H D AST 15 D ALT 23 Alkaline Phosphatase 56 Ammonia Total Protein 6.8 Albumin 3.4 D Urine Color Urine Appearance Urine pH Ur Specific [place] Urine Protein Urine Glucose (UA) Urine Ketones Urine Blood Urine Nitrite Urine Bilirubin Urine Urobilinogen Ur Leukocyte Esterase Urine WBC (Auto) Urine RBC (Auto) Acetone, Qual Positive small 1+ 09/06/17 09/06/17 09/06/17 20:55 22:30 23:06 WBC RBC Hgb Hct MCV MCH MCHC RDW Plt Count MPV Neutrophils % Lymphocytes % Monocytes % Eosinophils % Basophils % PT with INR INR PTT (Actin FS) Sodium Potassium Chloride Carbon Dioxide Anion Gap BUN Creatinine Creat Clearance w eGFR POC Glucometer [phone] Random Glucose Calcium Total Bilirubin AST ALT Alkaline Phosphatase Ammonia 20.55 Total Protein Albumin Urine Color Straw Urine Appearance Clear Urine pH 6.0 Ur Specific [place] 1.014 Urine Protein Negative Urine Glucose (UA) 3+ H Urine Ketones Trace H Urine Blood 1+ H Urine Nitrite Negative Urine Bilirubin Negative Urine Urobilinogen 2.0 Ur Leukocyte Esterase Negative Urine WBC (Auto) <1 Urine RBC (Auto) 2 Acetone, Qual Home Medications Medication Instructions Recorded Albuterol Sulfate Inhaler - 2 inh PO Q4H PRN 09/06/17 [Ventolin Hfa Inhaler -] Amlodipine Besylate [Norvasc -] 2.5 mg PO DAILY 09/06/17 Aspirin [Aspirin EC] 81 mg PO DAILY 09/06/17 Budesonide/Formeterol Fumarate 1 inh PO BID PRN 09/06/17 [SYMBICORT 160/4.5mcg -] Furosemide [Lasix -] 40 mg PO DAILY 09/06/17 Gabapentin 100 mg PO TID 09/06/17 Insulin (Levemir) [Levemir Vial] 70 unit SQ AM 09/06/17 Insulin Lispro [Humalog] 0 unit SQ ACHS PRN 09/06/17 Levothyroxine Sodium [Unithroid] 137 mcg PO DAILY 09/06/17 Linagliptin [Tradjenta] 5 mg PO DAILY 09/06/17 Metoprolol Succinate [Toprol Xl] 150 mg PO DAILY 09/06/17 Omeprazole 20 mg PO DAILY 09/06/17 Ramipril 10 mg PO DAILY 09/06/17 Sertraline HCl [Zoloft] 50 mg PO DAILY 09/06/17 Simvastatin 20 mg PO DAILY 09/06/17 Spironolactone 25 mg PO DAILY 09/06/17 ASSESSMENT AND PLAN: This is a 66 year old man with a history of HTN, hyperlipidemia, atrial fibrillation, chronic systolic heart failure, AICD, CAD, stents, COPD, FAM, hepatitis C, cirrhosis, hypothyroidism, IDDM, GERD, venous insufficiency who comes to the ED complaining of high sugars and urinary urgency and incontinence. 1. Insulin-dependent diabetes mellitus, uncontrolled - Patient is non-compliant with treatment regimen - Levemir with Novolog sliding scale - IV fluid - Monitor serum ketones - Check HgbA1c 2. Pseudohyponatremia secondary to hyperglycemia - Corrected sodium is 140 3. Chronic systolic heart failure - Stable - Continue Lasix, Aldactone, Altace, Toprol XL - Has AICD 4. CAD, history of stents - Continue aspirin, Toprol XL, Zocor 5. Permanent atrial fibrillation - Rate controlled - Continue Toprol XL, aspirin - Not on anticoagulation secondary to thrombocytopenia 6. Chronic venous insufficiency of both legs 7. 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 Thrombocytopenia secondary to liver disease - Stable 9. HTN - Continue Norvasc, Toprol XL, Altace, Aldactone, Lasix 9. Hyperlipidemia - Continue Zocor 10. Hypothyroidism - Continue Synthroid 11. COPD - Stable - Continue Symbicort, Albuterol as needed 12. FAM 13. Obesity with BMI 36.9 14. GERD - Continue Prilosec
[2017-09-07] MEDS: GABAPENTIN 100 MG CAPSULE (FP) PO SCH ×3 (05:52→21:26)
[2017-09-07] MEDS ORDERED: SODIUM CHLORIDE 1,000 ML IV SCH (06:30)
[2017-09-07] MEDS ORDERED: PT OWN MED DRAWER 7, Y5N ONE ×3 (06:39→21:13)
[2017-09-07] MEDS ORDERED: INSULIN DETEMIR 100 UNITS/ML MDV SQ SCH (07:00)
[2017-09-07] MEDS ORDERED: INSULIN SLIDING SCALE (NOVOLOG) 1 VIAL SQ SCH ×2 (07:00→07:55)
[2017-09-07 07:10] LABS: BASO % 0.6 % (0-2.0); EOS % 2.6 % (0-4.5); HEMATOCRIT 41.7 % (35.4-49); HEMOGLOBIN 13.9 GM/dL (11.7-16.9); LYMPH % 24.8 % (8-40); MCH 28.5 pg (25.7-33.7); MCHC 33.4 g/dl (32.0-35.9); MEAN CELL VOLUME 85.3 fl (80-96); MEAN PLT VOLUME 10.2 fl (7.5-11.1); MONO % 8.5 % (3.8-10.2); NEUT % 63.5 % (42.8-82.8); PLATELET COUNT 62 K/MM3 (134-434); RBC 4.89 M/mm3 (4.00-5.60); RDW 13.8 % (11.9-15.9); WHITE BLOOD COUNT 4.4 K/mm3 (4.0-10.0)
[2017-09-07 07:20] LABS: ANION GAP 8 (8-16); BLOOD UREA NITROGEN 14 mg/dL (7-18); CALCIUM 7.9 mg/dL (8.5-10.1); CHLORIDE 105 mmol/L (98-107); CO2 27 mmol/L (21-32); CREATININE 0.9 mg/dL (0.7-1.3); MAGNESIUM 1.5 mg/dL (1.8-2.4); PHOSPHOROUS 2.1 mg/dL (2.5-4.9); POTASSIUM 4.5 mmol/L (3.5-5.1); SODIUM 140 mmol/L (136-145)
[2017-09-07] MEDS: LEVOTHYROXINE 112 MCG, LEVOTHYROXINE 25 MCG PO SCH (07:46)
[2017-09-07 07:51] LABS: GLUCOSE,RANDOM 308 mg/dL (74-106)
[2017-09-07] MEDS ORDERED: INSULIN DETEMIR 100 UNITS/ML MDV SQ ONE ×2 (09:08→11:59)
[2017-09-07] MEDS ORDERED: NAPH,MB-DB/K PH,MBDB POWDER PACKET PO ONE (09:15)
[2017-09-07] MEDS ORDERED: MAGNESIUM OXIDE 400 MG TABLET (FP) PO ONE (09:15)
[2017-09-07] MEDS: amLODIPine BESYLATE 2.5 MG TABLET (FP) PO SCH (09:32)
[2017-09-07] MEDS: BUDESONIDE/FORMETEROL FUMARATE 160/4.5 mcg INHALER IH SCH ×2 (09:32→21:28)
[2017-09-07] MEDS: SERTRALINE HCL 50 MG TABLET (FP) PO SCH (09:34)
[2017-09-07] MEDS: PANTOPRAZOLE 20 MG TABLET (FP) PO SCH (09:34)
[2017-09-07] MEDS: ASPIRIN COATED 81 MG TABLET.EC PO SCH (09:34)
[2017-09-07] MEDS: FUROSEMIDE 40 MG TABLET (FP) PO SCH (09:34)
--- NOTE | 2017-09-07 09:47 | EKG ---
Test Reason : Blood Pressure : / mmHG Vent. Rate : 089 BPM Atrial Rate : 394 BPM P-R Int : 000 ms QRS Dur : 116 ms QT Int : 404 ms P-R-T Axes : 000 -39 136 degrees QTc Int : 491 ms ATRIAL FLUTTER WITH VARIABLE A-V BLOCK WITH PREMATURE VENTRICULAR OR ABERRANTLY CONDUCTED COMPLEXES LEFT AXIS DEVIATION CANNOT RULE OUT ANTEROSEPTAL INFARCT , AGE UNDETERMINED ABNORMAL ECG Confirmed by DANNA LUTZ MD ([id number]) on 09/07/2017 9:47:02 AM Referred By: Confirmed By:DANNA LUTZ MD
[2017-09-07] MEDS ORDERED: LEVOTHYROXINE SODIUM 137 MCG PO SCH (10:00)
[2017-09-07] MEDS: RAMIPRIL 5 MG CAPSULE (FP) PO SCH (11:00)
[2017-09-07] MEDS: SPIRONOLACTONE 25 MG TABLET (FP) PO SCH (11:00)
[2017-09-07] MEDS ORDERED: INSULIN (NOVOLOG) ASPART 100 UNITS/ML 10ML VIAL ONE ×3 (11:59→21:14)
--- NOTE | 2017-09-07 13:22 | PN ---
Teaching Attending Note Name of Resident: Molly Eric ATTENDING PHYSICIAN STATEMENT I saw and evaluated the patient. I reviewed the resident's note and discussed the case with the resident. I agree with the resident's findings and plan as documented. SUBJECTIVE: No fever or chills, has no abd pain, no dysuria , no SOB or PC . feels at his base line OBJECTIVE: NAD , AAOx3 Cv: irreg irreg . has JVD Lungs: CTAB Abd: soft, NT, ND , NL BS , liver edge felt in epigastric area. Ext: dark brown discoloration on legs . no ulcers seen . 1+ pitting edema ASSESSMENT AND PLAN: 66 y/o man with h/o HEp C, cirrhosis, alchol abuse , COPD , FAM, CAD, chronic S CHF, Aifb, HTN, HLP and other medical problems who presented with increased urination and was found to have severe hyperglycemia 1- Uncontrolled DM: non compliant . - given 15 units in am , will increase to 30 daily in am. cont SSI - no dKA , AG 8 this am . 2- HTN: Cont ramipril, toprol, and norvasc 3- H/o Cirrhosis: cont lasix and aldactone 4- H/o S CHF: clear cxray , no SOB , although has JVD , there is no evidence of acute heart failure. last echo in 2014 with severely reduced EF con toprol, ACEi, and diuretics 5- h/o A fib:EKG reviewed, a flutter with variable econduction - cont toprol - cont ASA. - not on AC due to thrombocytopenia. 6- Thrombocytopenia: due to liver cirrhosis. stable SCDs PT eval. is interested in NH placement
--- NOTE | 2017-09-07 14:07 | PN ---
Physical Exam: SUBJECTIVE: Patient seen and examined; no complaints. Admits to not taking medications properly at home. Denies chest pain, palpitations, sob, abdominal pain, leg swelling. OBJECTIVE: Vital Signs Period Temp Pulse Resp BP Sys/Guevara Pulse Ox Last 24 Hr 97.0 F-98.6 F 75-100 18- 137-181/60-98 97-99 GENERAL: The patient is awake, alert, and fully oriented, in no acute distress. HEAD: Normal with no signs of trauma. LUNGS: Breath sounds equal, clear to auscultation bilaterally, no wheezes, no crackles, no accessory muscle use. HEART: irRegular rate and rhythm, S1, S2 without murmur, rub or gallop. ABDOMEN: Soft, nontender, nondistended, normoactive bowel sounds, no guarding, no rebound, no hepatosplenomegaly, no masses. EXTREMITIES: 2+ pulses, warm, well-perfused, no edema. b/l skin discoloration purple NEUROLOGICAL: aaox3; motor intact; sensory intact throughout; reflexes 2+ bracheoradialis; knee PSYCH: Normal mood, normal affect. SKIN: icteric; no rashes Laboratory Results - last 24 hr 09/06/17 09/06/17 09/06/17 18:53 19:15 19:15 WBC 5.1 RBC 5.18 Hgb 14.8 Hct 43.6 MCV 84.3 MCH 28.7 MCHC 34.0 RDW 13.8 Plt Count 69 L MPV 10.1 Neutrophils % 74.4 Lymphocytes % 15.7 D Monocytes % 8.3 Eosinophils % 1.2 Basophils % 0.4 PT with INR 15.00 H INR 1.33 H PTT (Actin FS) 32.4 Sodium Potassium Chloride Carbon Dioxide Anion Gap BUN Creatinine Creat Clearance w eGFR POC Glucometer > 400 Random Glucose Hemoglobin A1c % Calcium Phosphorus Magnesium Total Bilirubin AST ALT Alkaline Phosphatase Ammonia Total Protein Albumin Urine Color Urine Appearance Urine pH Ur Specific [place] Urine Protein Urine Glucose (UA) Urine Ketones Urine Blood Urine Nitrite Urine Bilirubin Urine Urobilinogen Ur Leukocyte Esterase Urine WBC (Auto) Urine RBC (Auto) Acetone, Qual 09/06/17 09/06/17 09/06/17 19:16 20:55 21:32 WBC RBC Hgb Hct MCV MCH MCHC RDW Plt Count MPV Neutrophils % Lymphocytes % Monocytes % Eosinophils % Basophils % PT with INR INR PTT (Actin FS) Sodium 133 L Potassium 4.1 Chloride 93 L Carbon Dioxide 27 Anion Gap 13 BUN 20 H Creatinine 1.2 Creat Clearance w eGFR > 60 POC Glucometer > 400 Random Glucose 532 H* D Hemoglobin A1c % Calcium 8.5 Phosphorus Magnesium Total Bilirubin 1.4 H D AST 15 D ALT 23 Alkaline Phosphatase 56 Ammonia 20.55 Total Protein 6.8 Albumin 3.4 D Urine Color Urine Appearance Urine pH Ur Specific [place] Urine Protein Urine Glucose (UA) Urine Ketones Urine Blood Urine Nitrite Urine Bilirubin Urine Urobilinogen Ur Leukocyte Esterase Urine WBC (Auto) Urine RBC (Auto) Acetone, Qual Positive small 1+ 09/06/17 09/06/17 09/07/17 22:30 23:06 05:20 WBC 4.4 RBC 4.89 Hgb 13.9 Hct 41.7 MCV 85.3 MCH 28.5 MCHC 33.4 RDW 13.8 Plt Count 62 L MPV 10.2 Neutrophils % 63.5 Lymphocytes % 24.8 D Monocytes % 8.5 Eosinophils % 2.6 D Basophils % 0.6 PT with INR INR PTT (Actin FS) Sodium Potassium Chloride Carbon Dioxide Anion Gap BUN Creatinine Creat Clearance w eGFR POC Glucometer [phone] Random Glucose Hemoglobin A1c % Calcium Phosphorus Magnesium Total Bilirubin AST ALT Alkaline Phosphatase Ammonia Total Protein Albumin Urine Color Straw Urine Appearance Clear Urine pH 6.0 Ur Specific [place] 1.014 Urine Protein Negative Urine Glucose (UA) 3+ H Urine Ketones Trace H Urine Blood 1+ H Urine Nitrite Negative Urine Bilirubin Negative Urine Urobilinogen 2.0 Ur Leukocyte Esterase Negative Urine WBC (Auto) <1 Urine RBC (Auto) 2 Acetone, Qual 09/07/17 09/07/17 09/07/17 05:20 05:20 05:27 WBC RBC Hgb Hct MCV MCH MCHC RDW Plt Count MPV Neutrophils % Lymphocytes % Monocytes % Eosinophils % Basophils % PT with INR INR PTT (Actin FS) Sodium 140 Potassium 4.5 Chloride 105 D Carbon Dioxide 27 Anion Gap 8 BUN 14 D Creatinine 0.9 D Creat Clearance w eGFR POC Glucometer [phone] Random Glucose 308 H* D Hemoglobin A1c % 11.7 H D Calcium 7.9 L Phosphorus 2.1 L Magnesium 1.5 L Total Bilirubin AST ALT Alkaline Phosphatase Ammonia Total Protein Albumin Urine Color Urine Appearance Urine pH Ur Specific [place] Urine Protein Urine Glucose (UA) Urine Ketones Urine Blood Urine Nitrite Urine Bilirubin Urine Urobilinogen Ur Leukocyte Esterase Urine WBC (Auto) Urine RBC (Auto) Acetone, Qual 09/07/17 11:14 WBC RBC Hgb Hct MCV MCH MCHC RDW Plt Count MPV Neutrophils % Lymphocytes % Monocytes % Eosinophils % Basophils % PT with INR INR PTT (Actin FS) Sodium Potassium Chloride Carbon Dioxide Anion Gap BUN Creatinine Creat Clearance w eGFR POC Glucometer [phone] Random Glucose Hemoglobin A1c % Calcium Phosphorus Magnesium Total Bilirubin AST ALT Alkaline Phosphatase Ammonia Total Protein Albumin Urine Color Urine Appearance Urine pH Ur Specific [place] Urine Protein Urine Glucose (UA) Urine Ketones Urine Blood Urine Nitrite Urine Bilirubin Urine Urobilinogen Ur Leukocyte Esterase Urine WBC (Auto) Urine RBC (Auto) Acetone, Qual Active Medications Generic Name Dose Route Start Last Admin Trade Name Freq PRN Reason Stop Dose Admin Amlodipine Besylate 2.5 mg 09/07/17 10:00 09/07/17 09:32 Norvasc - PO 2.5 mg DAILY SHAUN Administration Aspirin 81 mg 09/07/17 10:00 09/07/17 09:34 Ecotrin - PO 81 mg DAILY [facility] Administration Atorvastatin Calcium 10 mg 09/07/17 22:00 Lipitor - PO HS [facility] Budesonide/Formoterol Fumarate 2 puff 09/07/17 10:00 09/07/17 09:32 Symbicort 160/4.5mcg - IH 2 inh BID SHAUN Administration Furosemide 40 mg 09/07/17 10:00 09/07/17 09:34 Lasix - PO 40 mg DAILY SHAUN Administration Gabapentin 100 mg 09/07/17 06:00 09/07/17 05:52 Neurontin - PO 100 mg TID [facility] Administration Insulin Aspart 1 vial 09/07/17 16:30 Novolog Vial Sliding Scale - SQ ACHS [facility] Protocol Insulin Detemir 30 units 09/08/17 10:00 Levemir Vial SQ DAILY [facility] Levothyroxine Sodium 112 mcg/ 137 mcg 09/07/17 07:00 09/07/17 07:46 Levothyroxine Sodium 25 mcg PO 137 mcg DAILY@0700 SHAUN Administration Metoprolol Succinate 150 mg 09/07/17 10:00 09/07/17 09:34 Toprol Xl - PO 150 mg DAILY SHAUN Administration Pantoprazole Sodium 20 mg 09/07/17 10:00 03/23/18 09:34 Protonix - PO 20 mg DAILY SHAUN Administration Ramipril 10 mg 09/07/17 10:00 09/07/17 11:00 Altace - PO 10 mg DAILY SHAUN Administration Sertraline HCl 50 mg 09/07/17 10:00 09/07/17 09:34 Zoloft - PO 50 mg DAILY SHAUN Administration Spironolactone 25 mg 09/07/17 10:00 09/07/17 11:00 Aldactone - PO 25 mg DAILY SHAUN Administration ASSESSMENT/PLAN: This is a 66 year old male with a medical history of HTN, HLD< uncontrolled diabetes, CHF s/p AICD, CAD s/p stents, COPD, ASA, hep C, cirrhosis; admitted for hyperglycemia. #hyperglycemia/uncontrolled diabetes: due to non compliance -not in DKA: -IVF: NS -started long acting insulin 15U bid; increase to 30U qd in morning as patient is still hyperglycemic and SS coverage is great -BGM ACHS -insulin SS -hemoglobin A1C 11.7 -diabetic counseling/medication adherence #Hyperkalemia: resoled -normalized this am after IVF/insulin -trend in afternoon -look at med list for adverse reactions #hypomagnesemia: -replace 800mg po magnesium oxide #hypophosphatemia: -replaced #thrombocytopenia sec to liver cirrhosis -trend -no heparin or hep product; do not want to induce HIT #hx of CHF: stable -not in acute failure/cxr no overload/no edema/lungs clear -cont llasix. aldactone. altace. toprol xl -has ACID #hx of CAD: stable -cont ASA; toprol xl, zocor #permanent atrial fibrillation -rate controlled with toprol -no on AC (thrombocytopenia) #COPD: -controlled, continue symbicort #liver cirrhosis sec to hep C -on aldactone,lasix; #chronic venous stasis of legs #hypothyroid: cont home levothyroxine #HLD: -cont zocor #depression: zoloft GI prophylaxis :protonix VTE prophylaxis: scds Case discussed with attending Dr. Selene [id number] Problem List - Problems (1) Hyperglycemia Code(s): R73.9 - HYPERGLYCEMIA, UNSPECIFIED (2) Atrial fibrillation Code(s): I48.91 - UNSPECIFIED ATRIAL FIBRILLATION Qualifiers: Atrial fibrillation type: chronic Qualified Code(s): I48.2 - Chronic atrial fibrillation (3) CAD (coronary artery disease) Code(s): I25.10 - ATHSCL HEART DISEASE OF [place] CORONARY ARTERY W/O ANG PCTRS (4) CHF (congestive heart failure) Code(s): I50.9 - HEART FAILURE, UNSPECIFIED (5) COPD (chronic obstructive pulmonary disease) Code(s): J44.9 - CHRONIC OBSTRUCTIVE PULMONARY DISEASE, UNSPECIFIED (6) Chronic venous insufficiency Code(s): I87.2 - VENOUS INSUFFICIENCY (CHRONIC) (PERIPHERAL) (7) Diabetes mellitus, insulin dependent (IDDM), uncontrolled Code(s): E10.65 - TYPE 1 DIABETES MELLITUS WITH HYPERGLYCEMIA (8) HTN (hypertension) Code(s): I10 - ESSENTIAL (PRIMARY) HYPERTENSION (9) Liver cirrhosis Code(s): K74.60 - UNSPECIFIED CIRRHOSIS OF LIVER Qualifiers: Hepatic cirrhosis type: unspecified hepatic cirrhosis Ascites presence: without ascites Qualified Code(s): K74.60 - Unspecified cirrhosis of liver Visit type - Emergency Visit Emergency Visit: Yes ED Registration Date: 09/07/17 Care time: The patient presented to the Emergency Department on the above date and was hospitalized for further evaluation of their emergent condition. - New Patient This patient is new to me today: Yes Date on this admission: 09/07/17 - Critical Care Critical Care patient: No
[2017-09-07] MEDS: INSULIN SLIDING SCALE (NOVOLOG) 1 VIAL SQ SCH ×2 (18:02→21:27)
[2017-09-07] MEDS ORDERED: ATORVASTATIN CA 10 MG TABLET (FP) PO SCH (22:00)
[2017-09-08] MEDS: INSULIN SLIDING SCALE (NOVOLOG) 1 VIAL SQ SCH ×2 (06:33→11:37)
[2017-09-08] MEDS ORDERED: LEVOTHYROXINE NA 112 MCG TABLET (FP) ONE (06:35)
[2017-09-08] MEDS ORDERED: LEVOTHYROXINE NA 25 MCG TABLET (FP) ONE (06:35)
[2017-09-08] MEDS: LEVOTHYROXINE 112 MCG, LEVOTHYROXINE 25 MCG PO SCH (06:36)
[2017-09-08] MEDS: GABAPENTIN 100 MG CAPSULE (FP) PO SCH ×2 (06:36→13:32)
[2017-09-08] MEDS ORDERED: INSULIN DETEMIR 100 UNITS/ML MDV SQ ONE ×3 (07:59→12:47)
[2017-09-08 08:07] LABS: HEMATOCRIT 41.4 % (35.4-49); HEMOGLOBIN 13.8 GM/dL (11.7-16.9); MCH 28.7 pg (25.7-33.7); MCHC 33.4 g/dl (32.0-35.9); MEAN PLT VOLUME 9.8 fl (7.5-11.1); PLATELET COUNT 59 K/MM3 (134-434); RBC 4.82 M/mm3 (4.00-5.60); RDW 14.2 % (11.9-15.9); WHITE BLOOD COUNT 4.9 K/mm3 (4.0-10.0)
[2017-09-08 08:45] LABS: ANION GAP 5 (8-16); BLOOD UREA NITROGEN 15 mg/dL (7-18); CHLORIDE 103 mmol/L (98-107); CO2 29 mmol/L (21-32); GLUCOSE,RANDOM 203 mg/dL (74-106); PHOSPHOROUS 2.2 mg/dL (2.5-4.9); SODIUM 137 mmol/L (136-145)
[2017-09-08 08:46] LABS: CALCIUM 7.8 mg/dL (8.5-10.1); MAGNESIUM 1.5 mg/dL (1.8-2.4)
[2017-09-08] MEDS ORDERED: MAGNESIUM OXIDE 400 MG TABLET (FP) PO ONE ×2 (09:10→13:30)
[2017-09-08] MEDS ORDERED: INSULIN DETEMIR 100 UNITS/ML MDV SQ SCH (10:00)
[2017-09-08] MEDS ORDERED: INSULIN (NOVOLOG) ASPART 100 UNITS/ML 10ML VIAL ONE (11:35)
[2017-09-08] MEDS: ASPIRIN COATED 81 MG TABLET.EC PO SCH (11:40)
[2017-09-08] MEDS: amLODIPine BESYLATE 2.5 MG TABLET (FP) PO SCH (11:41)
[2017-09-08] MEDS: PANTOPRAZOLE 20 MG TABLET (FP) PO SCH (11:41)
[2017-09-08] MEDS: FUROSEMIDE 40 MG TABLET (FP) PO SCH (11:41)
[2017-09-08] MEDS: SERTRALINE HCL 50 MG TABLET (FP) PO SCH (11:42)
[2017-09-08] MEDS: RAMIPRIL 5 MG CAPSULE (FP) PO SCH (11:44)
[2017-09-08] MEDS: SPIRONOLACTONE 25 MG TABLET (FP) PO SCH (11:44)
[2017-09-08] MEDS: BUDESONIDE/FORMETEROL FUMARATE 160/4.5 mcg INHALER IH SCH (11:45)
[2017-09-08] MEDS ORDERED: CALCIUM ACETATE 667 MG CAPSULE (FP) PO SCH (12:00)
[2017-09-08] MEDS ORDERED: NAPH,MB-DB/K PH,MBDB POWDER PACKET PO ONE (14:45)
--- NOTE | 2017-09-08 15:07 | PN ---
Teaching Attending Note Name of Resident: Brayden Shepherd ATTENDING PHYSICIAN STATEMENT I saw and evaluated the patient. I reviewed the resident's note and discussed the case with the resident. I agree with the resident's findings and plan as documented. SUBJECTIVE: No fever or chills , has no pain . OBJECTIVE: NAD , AAOx3 Cv: irreg irreg . has JVD Lungs: CTAB Abd: soft, NT, ND , NL BS , liver edge felt in epigastric area. Ext: dark brown discoloration on legs . no ulcers seen . 1+ pitting edema ASSESSMENT AND PLAN: 66 y/o man with h/o HEp C, cirrhosis, alchol abuse , COPD , FAM, CAD, chronic S CHF, Aifb, HTN, HLP and other medical problems who presented with increased urination and was found to have severe hyperglycemia 1- Uncontrolled DM: non compliant . - levemir increased to 50 this am . sugar si better controlled. at dc cont with SSi and levemir 50 am 2- HTN: Cont ramipril, toprol, and norvasc 3- H/o Cirrhosis: cont lasix and aldactone 4- H/o S CHF: con toprol, ACEi, and diuretics 5- h/o A fib: - cont toprol - cont ASA. - not on AC due to thrombocytopenia. 6- Thrombocytopenia: due to liver cirrhosis. stable dc home with VNS .
[2017-09-08 15:30] VITALS: BP 146/82; PULSE 81; TEMP 97.3
[2017-09-09] MEDS ORDERED: INSULIN DETEMIR 100 UNITS/ML MDV SQ SCH (07:00)
--- NOTE | 2017-09-09 15:24 | DS ---
Physical Exam: SUBJECTIVE: Patient seen and examined at bedside. Patient feels better and is eager to go home. PHYSICAL EXAM GENERAL: The patient is awake, alert, and fully oriented, in no acute distress. HEAD: Normal with no signs of trauma. LUNGS: Breath sounds equal, clear to auscultation bilaterally, no wheezes, no crackles, no accessory muscle use. HEART: Regular rate and rhythm, S1, S2 without murmur, rub or gallop. ABDOMEN: Soft, nontender, nondistended, normoactive bowel sounds, no guarding, no rebound, no hepatosplenomegaly, no masses. EXTREMITIES: 2+ pulses, warm, well-perfused, no edema. NEUROLOGICAL: Cranial nerves II through X grossly intact. Normal speech, gait not observed. SKIN: Warm, dry, normal turgor, no rashes or lesions noted. LABS Laboratory Results - last 24 hr 09/08/17 16:14 POC Glucometer 337 HOSPITAL COURSE: Date of Admission:09/07/17 The patient is a 66 yo m w/ PMH Afib, DM, CHF who came into the ED complaining of an "uncontrolled sugar level." Per the patient, he had been noncomplaint with medications and did not check his sugar regularly. On the evening prior to his admission, his took his blood glucose level and stated that it was "extremely elevated". Patient also endorsed blurred vision, urinary frequency and generalized malaise. In the ED, the patient was found to have a blood sugar of 532 with an anion gap of 13 and a small (1+) acetone level in the blood. He was admitted for further treatment of his hypoglycemia. A chest xray showed no acute findings. He was treated with Levemir and a novalog sliding scale. His magnesium level was found to be 1.5 and he was treated with magnesium oxide. His blood glucose dropped into a safe range, his anion gap closed to 5 and the patient improved clinically. The patient was advised on the proper use, storage and administration of insulin and insulin needles. He was advised of the potential micro and macrovascular complications of continuing to be noncompliant with his medications including infection, amputation and . The patient verbalized understanding of the risks. He was discharged home with instructions to follow up with both his primary care physician as well as his improvement manager within one week of discharge. Date of Discharge: 03/24/18 Minutes to complete discharge: 40 Discharge Summary Reason For Visit: HYPERGLYCEMIA Condition: Improved - Instructions Diet, Activity, Other Instructions: You were admitted for the treatment of your high blood sugars. You should resume taking your home medications as prescribed starting tonight. Please take 70 units of your long acting insulin every morning. Please follow a diabetic diet. Please check your blood sugar before every meal. Write down these numbers in a book to show your doctor. Give yourself short acting insulin according to the following sliding scale: If your blood sugar is 101-150, give yourself 0 units of insulin If your blood sugar is 151-200, give yourself 2 units of insulin If your blood sugar is 201-250, give yourself 4 units of insulin If your blood sugar is 251-300, give yourself 6 units of insulin If your blood sugar is 301-350, give yourself 8 units of insulin If your blood sugar is 351-400, give yourself 10units of insulin If your blood sugar is > 400, give yourself 12 units of insulin and call MD Only take your short acting insulin if you intend to eat. If you experience symptoms of low blood sugar including weakness, sweating, dizziness or fatigue, Please drink some juice and call your doctor. You should follow up with your primary care physician within 1 week of discharge home. If you begin to experience chest pain, shortness of breath, abdominal pain or if any of your symptoms get worse, please call your doctor or return to the emergency department. please follow with Dr. 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 for your liver disease Referrals: Nery Najera MD [Staff Physician] - 1 Week Disposition: VNS/HOME HEALTH CARE - Home Medications Comprehensive Discharge Medication List: Ambulatory Orders Albuterol Sulfate Inhaler - [Ventolin HFA Inhaler -] 2 inh PO Q4H PRN 09/06/17 Amlodipine Besylate [Norvasc -] 2.5 mg PO DAILY 09/06/17 Aspirin [Aspirin EC] 81 mg PO DAILY 09/06/17 Budesonide/Formeterol Fumarate [SYMBICORT 160/4.5mcg -] 1 inh PO BID PRN Furosemide [Lasix -] 40 mg PO DAILY 09/06/17 Gabapentin 100 mg PO TID 09/06/17 Insulin (Levemir) [Levemir Vial] 70 unit SQ AM 09/06/17 Insulin Lispro [Humalog] 0 unit SQ ACHS PRN 09/06/17 Levothyroxine Sodium [Unithroid] 137 mcg PO DAILY 09/06/17 Linagliptin [Tradjenta] 5 mg PO DAILY 09/06/17 Metoprolol Succinate [Toprol Xl] 150 mg PO DAILY 09/06/17 Omeprazole 20 mg PO DAILY 09/06/17 Ramipril 10 mg PO DAILY 09/06/17 Sertraline HCl [Zoloft] 50 mg PO DAILY 09/06/17 Simvastatin 20 mg PO DAILY 09/06/17 Spironolactone 25 mg PO DAILY 09/06/17 This patient is new to me today: Yes Date on this admission: 09/09/17 Emergency Visit: Yes ED Registration Date: 09/07/17 Care time: The patient presented to the Emergency Department on the above date and was hospitalized for further evaluation of their emergent condition. Critical Care patient: No - Discharge Referral Referred to [facility] No
== END 2017-09-08 18:45 | disposition home health service (06) ==
LOC: JER 18:40 → JERBED 09-07 00:27 → UNDOADMOB 09-07 00:27 → JERBED 09-07 00:30 → OBSVTOIN 09-07 02:29 → INTOOBSV 09-07 02:29 → JERBED 09-07 02:44 → J2W 09-07 02:44 → J6S 09-07 18:04
PROVIDERS: ADMIT Internal Medicine; ATTEND Internal Medicine
PROC: 3E033VG Introduction of Insulin into Peripheral Vein, Percutaneous Approach (ICD-10-PCS; principal; 2017-09-07)
PROC: 3E0337Z Introduction of Electrolytic and Water Balance Substance into Peripheral Vein, Percutaneous Approach (ICD-10-PCS; 2017-09-07)
PROC: 3E013VG Introduction of Insulin into Subcutaneous Tissue, Percutaneous Approach (ICD-10-PCS; 2017-09-07)
DX: E11.65 Type 2 diabetes mellitus with hyperglycemia (principal); E11.42 Type 2 diabetes mellitus with diabetic polyneuropathy; Z79.4 Long term (current) use of insulin; I10 Essential (primary) hypertension; I48.91 Unspecified atrial fibrillation; I48.92 Unspecified atrial flutter; I50.32 Chronic diastolic (congestive) heart failure; I25.10 Atherosclerotic heart disease of native coronary artery without angina pectoris; I87.2 Venous insufficiency (chronic) (peripheral); I87.8 Other specified disorders of veins; J44.9 Chronic obstructive pulmonary disease, unspecified; E03.9 Hypothyroidism, unspecified; E78.5 Hyperlipidemia, unspecified; E87.5 Hyperkalemia; E83.42 Hypomagnesemia; E83.39 Other disorders of phosphorus metabolism; F32.9 Major depressive disorder, single episode, unspecified; K21.9 Gastro-esophageal reflux disease without esophagitis; K70.30 Alcoholic cirrhosis of liver without ascites; I44.30 Unspecified atrioventricular block; F41.9 Anxiety disorder, unspecified; D69.6 Thrombocytopenia, unspecified; D64.9 Anemia, unspecified; B18.2 Chronic viral hepatitis C; G47.33 Obstructive sleep apnea (adult) (pediatric); R74.8 Abnormal levels of other serum enzymes; E66.9 Obesity, unspecified; Z68.37 Body mass index [BMI] 37.0-37.9, adult; Z91.14 Patient's other noncompliance with medication regimen; Z95.5 Presence of coronary angioplasty implant and graft; Z95.810 Presence of automatic (implantable) cardiac defibrillator; Z87.442 Personal history of urinary calculi; Z91.011 Allergy to milk products; Z88.8 Allergy status to other drugs, medicaments and biological substances; Z79.82 Long term (current) use of aspirin
CPT/HCPCS: 36415; 71046-TC-FY; 80048; 80053; 81003; 81015; 82009; 82140; 82962; 83036; 83735; 84100; 85025; 85027; 85610; 85730; 93005; 93010; 96361; 96372; 96374; 97116-GP; 97161-GP; 99285-25; G0378; J7030